=== PATIENT | male | born 1965 | race Caucasian/White ===

== ENCOUNTER 2016-08-02 09:27 | Emergency (ER) | payer OTHER ==
[~2016-08-02] VITALS: Ht 188 cm; Wt 102.4 kg
[~2016-08-02 09:27] MED LIST: CELEBREX200 MG PO; CINNAMON500 MG PO; FISH OIL300 MG PO; FLAX OIL1000 MG PO; FLEXERIL10 MG PO; MEN'S MULTI-VI1 EACH PO; OSTEO BI-FLEX1 EAC1 PO; PROTONIX40 MG PO; ULTRAM50 MG PO
[2016-08-02 10:18] LABS: HEMATOCRIT 40.2 % (38.0-50.0); MCH 29.8 PG (29.0-34.0); MCHC 35.3 G/DL (30.0-36.0); MCV 84.3 FL (86-99); MEAN PLAT.VOLUME 10.7 uM^3 (9.0-12.4); PLATELET COUNT 184 K/uL (156-360); RBC DIS.WIDTH-CV 12.9 % (11.8-14.6); RBC DIS.WIDTH-SD 39.3 % (39-53); RED BLOOD COUNT 4.77 M/uL (4.00-5.50); WHITE BLOOD COUNT 3.9 K/uL (4.1-10.2)
[2016-08-02 12:21] LABS: ANION GAP 11 MEQ/L (2-14); CHLORIDE 107 MEQ/L (99-109); POTASSIUM 4.2 MEQ/L (3.7-5.4); SAMPLE HEMOLYSIS CHECK 0; SAMPLE ICTERIC CHECK 0; SAMPLE LIPEMIA CHECK 0; SODIUM 141 MEQ/L (136-147)
[2016-08-02 12:27] LABS: GFR ESTIMATE (CALCULATED) > 59 mL/min/; GLUCOSE 149 mg/dL (70-99); UREA NITROGEN (BUN) 16 mg/dL (9-23)
[2016-08-02 12:49] VITALS: BP 160/99
== END 2016-08-02 12:50 | disposition short-term general hospital (02) ==
LOC: EME 09:27
PROVIDERS: Emergency Medicine
PROC: 0HQGXZZ Repair Left Hand Skin, External Approach (ICD-10-PCS; principal; 2016-08-02)
DX: S62.635B Displaced fracture of distal phalanx of left ring finger, initial encounter for open fracture (principal); S68.625A Partial traumatic transphalangeal amputation of left ring finger, initial encounter; S67.195A Crushing injury of left ring finger, initial encounter; W20.8XXA Other cause of strike by thrown, projected or falling object, initial encounter; Y92.9 Unspecified place or not applicable; Y99.0 Civilian activity done for income or pay; Y93.H9 Activity, other involving exterior property and land maintenance, building and construction
CPT/HCPCS: 73140; 80048; 85027; 99281; 99285; J0690; J1170; J2765; J7030